=== PATIENT | male | born 1955 | race Caucasian/White ===

== ENCOUNTER 2025-01-27 10:40 | Emergency (ER) | payer OTHER ==
[2025-01-27] MEDS ORDERED: KETOROLAC 30 MG/ML INJ ONE (11:11)
[2025-01-27] MEDS ORDERED: METOCLOPRAMIDE 10 MG/2mL INJ ONE (11:11)
[2025-01-27] MEDS ORDERED: DIPHENHYDRAMINE 50 MG/ML VIAL ONE (11:12)
--- NOTE | 2025-01-27 11:37 | RAD REPORT ---
EXAMINATION: Head Brain Wo Cont CLINICAL INDICATION: Male, 69 years old.HEADACHE TECHNIQUE: Axial CT images from the skull base to the vertex without intravenous contrast. Coronal an d sagittal reformatted images were created from the data set. One or more of the following dose reduction techniques were used: Automated exposure control, adjustment of the mA and/or kV according to patient size, and/or iterative reconstruction. Unless otherwise specified, incidental findings do not require dedicated imaging follow-up. [id number]. COMPARISON: No prior exams FINDINGS: INTRACRANIAL: No acute intracranial hemorrhage. No acute large vascular territory infarct. No hydroce phalus. No mass effect or midline shift. No significant white matter disease. VASCULATURE: No visualized abnormalities in the arteries or dural venous sinuses. SCALP/SKULL: No calvarial fracture identified. No acute soft tissue abnormality. SINUSES: The visualized paranasal sinuses are mostly clear. No significant mastoid fluid. IMPRESSION: No acute intracranial abnormality.
--- NOTE | 2025-01-27 11:55 | EDPHYS ---
Physician Documentation [facility] Name: Boston Cevallos Age: 69 yrs Sex: Male : 1955 Arrival Date: 01/27/2025 Time: 10:40 Bed 13 Private MD: ED Physician Home Harrington HPI: 01/27 11:41 This 69 yrs old Male presents to ER via Ambulatory with complaints of Headache. ms3 11:41 69-year-old male with past medical history of migraines and anxiety presents to the [facility] emergency department from the [place] [facility] for headache that has been ongoing for 1 week. Patient states the pain is a pressure sensation of a tourniquet being applied around his head. Patient was seen in the [place] and was sent to the emergency department for CT scan of his head. Patient states his current discomfort is an 8/10. Patient states he has headaches daily.. Historical: - Allergies: 10:56 Iodinated Contrast Media - IV Dye; dd2 - PMHx: 10:56 Migraine; Anxiety; dd2 - PSHx: 10:56 None; dd2 - Immunization history:: Adult Immunizations up to date. - Infectious Disease History:: Denies. - Social history:: Smoking status: Patient reports the use of cigarette tobacco products, smokes one-half pack cigarettes per day. ROS: 11:41 Constitutional: Negative for fever, and chills. Cardiovascular: Negative for chest ms3 pain, and palpitations. Respiratory: Negative for shortness of breath, cough, wheezing, and pleuritic chest pain, Abdomen/GI: Negative for abdominal pain, nausea, vomiting, diarrhea, and constipation, MS/Extremity: Negative for injury and deformity, 11:41 Neuro: Positive for headache, Exam: 11:41 Constitutional: This is a well developed, well nourished patient who is awake, alert, ms3 and in no acute distress. Cardiovascular: Regular rate and rhythm with a normal S1 and S2. No gallops, murmurs, or rubs. Normal PMI, no JVD. No pulse deficits. Respiratory: Lungs have equal breath sounds bilaterally, clear to auscultation and percussion. No rales, rhonchi or wheezes noted. No increased work of breathing, no retractions or nasal flaring. Abdomen/GI: Soft, non-tender, with normal bowel sounds. No distension or tympany. No guarding or rebound. No evidence of tenderness throughout. Skin: Warm, dry with normal turgor. Normal color with no rashes, no lesions, and no evidence of cellulitis. Neuro: Awake and alert, GCS 15, oriented to person, place, time, and situation. Cranial nerves II-XII grossly intact. Motor strength 5/5 in all extremities. Sensory grossly intact. Cerebellar exam normal. Normal gait. Vital Signs: 10:54 BP 130 / 70; Pulse 69; Resp 16; Temp 97.9; Pulse Ox 100% on R/A; Weight 78.02 kg; dd2 Height 5 ft. 11 in. ; Pain 7/10; 11:56 BP 128 / 78; Pulse 74; Resp 18; Pulse Ox 100% ; mb9 10:54 Body Mass Index 23.99 (78.02 kg, 180.34 cm) dd2 10:54 Pain Scale: Adult dd2 MDM: 11:06 Medical Screening Exam initiated ms3 11:41 Differential diagnosis: intracerebral hemorrhage, migraine, tension headache. ms3 11:54 Data reviewed: vital signs, nurses notes, radiologic studies, and as a result, I will ms3 discharge patient. I considered the following discharge prescriptions or medication management in the emergency department Medications were administered in the Emergency Department. See MAR. Independent interpretation of the following test(s) in the Emergency Department CT Scan: My interpretation is CT Head without contrast images reviewed by me did not reveal ICH. Counseling: I had a detailed discussion with the patient and/or guardian regarding the historical points, exam findings, and any diagnostic results supporting the discharge/admit diagnosis, radiology results, the need for outpatient follow up, to return to the emergency department if symptoms worsen or persist or if there are any questions or concerns that arise at home. Special discussion: I discussed with the patient/guardian in detail that at this point there is no indication for admission to the hospital. It is understood, however, that if the symptoms persist or worsen the patient needs to return immediately for re-evaluation. ED course: On reevaluation patient is alert and oriented x 4, no apparent distress, nontoxic-appearing, speaking full sentences, ambulatory in the emergency department. Patient to follow-up Dr. Parra in 2 to 3 days. Patient understands and agrees with plan. All questions were answered. Return precautions were discussed include worsening symptoms, or any other concerns.. 01/27 11:09 Order name: CT Head Brain wo Cont; Complete Time: 11:41 ms3 01/27 11:24 Order name: IV Saline Lock; Complete Time: 11:24 mb9 Administered Medications: 11:16 Drug: Ketorolac IVP 10 mg 10 mg IVP once Route: IVP; Site: right upper arm; mb9 12:08 Follow up: Response: No adverse reaction mb9 11:20 Drug: metoCLOPramide IVP 10 mg IVP once; over 1 to 2 minutes Route: IVP; Site: right mb9 upper arm; 12:09 Follow up: Response: No adverse reaction mb9 11:22 Drug: diphenhydrAMINE IVP 12.5 mg IVP once Route: IVP; Site: right upper arm; mb9 12:09 Follow up: Response: No adverse reaction mb9 11:24 Drug: Decadron - Dexamethasone IVP 10 mg IVP once Route: IVP; Site: right upper arm; mb9 12:08 Follow up: Response: No adverse reaction mb9 Disposition Summary: 01/27/25 11:54 Discharge Ordered Notes: Location: Home ms3 Condition: Stable ms3 Diagnosis - Headache ms3 Followup: ms3 - With: Librado Parra MD - When: 2 - 3 days - Reason: Recheck today's complaints Discharge Instructions: - Discharge Summary Sheet ms3 - General Headache Without Cause ms3 Forms: - Medication Reconciliation Form ms3 - Antibiotic Education ms3 - Prescription Opioid Use ms3 - Patient Portal Instructions ms3 - Leadership Thank You Letter ms3 Signatures: Dispatcher [employer] Home Van DO DO ms3 Liza Kauffman RN RN mb9 ISATU SANTIAGO RN RN dd2 Corrections: (The following items were deleted from the chart) 10:57 10:56 PMHx: VITAMIN D DEFFICIANCY; dd2 dd2
--- NOTE | 2025-01-27 11:55 | ER ---
Nurse's Notes [facility] Name: Boston Cevallos Age: 69 yrs Sex: Male : 1955 Arrival Date: 01/27/2025 Time: 10:40 Bed 13 Private MD: Diagnosis: Headache Presentation: 01/27 10:54 Chief complaint: Patient states: HE HAS A HX OF MIGRAINES AND HAS A DULL HEADACHE dd2 CONSTANTLY BUT THE PAST 3 DAYS IT HAS BEEN WORSE, PRESSURE BEHIND THE EYES, INTENSE PAIN. [facility]TS [facility] AND PRESCRIPTION. Coronavirus screen: At this time, the client does not indicate any symptoms associated with coronavirus-19. Ebola Screen: No symptoms or risks identified at this time. Initial Sepsis Screen: Does the patient meet any 2 criteria? No. Patient's initial sepsis screen is negative. Does the patient have a suspected source of infection? No. Patient's initial sepsis screen is negative. Risk Assessment: Do you want to hurt yourself or someone else? Patient reports no desire to harm self or others. Onset of symptoms is unknown. 10:54 Method Of Arrival: Ambulatory dd2 10:54 Acuity: JEFFREY 3 dd2 Triage Assessment: 10:56 Headache History: The patient has had previous headaches and this one is similar to dd2 previous episodes. General: Appears in no apparent distress. uncomfortable, Behavior is calm, cooperative, appropriate for age. Pain: Complains of pain in HEAD Pain currently is 7 out of 10 on a pain scale. Pain began PT REPORTS CONSTANT Also complains of labile emotions. Neuro: Level of Consciousness is awake, alert, obeys commands, Oriented to person, place, time, situation, Appropriate for age Reports headache in entire. Historical: - Allergies: 10:56 Iodinated Contrast Media - IV Dye; dd2 - PMHx: 10:56 Migraine; Anxiety; dd2 - PSHx: 10:56 None; dd2 - Immunization history:: Adult Immunizations up to date. - Infectious Disease History:: Denies. - Social history:: Smoking status: Patient reports the use of cigarette tobacco products, smokes one-half pack cigarettes per day. Screenin:02 [facility] ED Fall Risk Assessment (Adult) History of falling in the last 3 months, mb9 including since admission No falls in past 3 months (0 pts) Confusion or Disorientation No (0 pts) Intoxicated or Sedated No (0 pts) Impaired Gait No (0 pts) Mobility Assist Device Used No (0 pt) Altered Elimination No (0 pt) Score/Fall Risk Level 0 - 2 = Low Risk Oriented to surroundings, Maintained a safe environment, Educated pt \T\ family on fall prevention, incl call for assistance when getting out of bed. Abuse screen: Denies threats or abuse. Nutritional screening: No deficits noted. Tuberculosis screening: No symptoms or risk factors identified. Assessment: 11:24 General: Appears in no apparent distress. Behavior is calm, cooperative. Pain: mb9 Complains of pain in head Pain currently is 10 out of 10 on a pain scale. Quality of pain is described as throbbing, Pain began suddenly, Is continuous. Neuro: Neves Agitation-Sedation Scale (RASS): 0 - Alert and Calm Level of Consciousness is awake, alert, obeys commands, Oriented to person, place, time, situation, Appropriate for age. Neuro: Reports headache in entire. Cardiovascular: Patient's skin is warm and dry. Respiratory: Airway is patent Respiratory effort is even, unlabored, Respiratory pattern is regular, symmetrical. GI: Reports nausea. : No signs and/or symptoms were reported regarding the genitourinary system. EENT: No signs and/or symptoms were reported regarding the EENT system. Derm: Skin is pink, warm \T\ dry. Musculoskeletal: Range of motion: intact in all extremities. 11:56 Reassessment: Patient appears in no apparent distress at this time. Patient is alert, mb9 oriented x 3, equal unlabored respirations, skin warm/dry/pink. Vital Signs: 10:54 BP 130 / 70; Pulse 69; Resp 16; Temp 97.9; Pulse Ox 100% on R/A; Weight 78.02 kg; dd2 Height 5 ft. 11 in. ; Pain 7/10; 11:56 BP 128 / 78; Pulse 74; Resp 18; Pulse Ox 100% ; mb9 10:54 Body Mass Index 23.99 (78.02 kg, 180.34 cm) dd2 10:54 Pain Scale: Adult dd2 ED Course: 10:44 Patient arrived in ED. al6 10:46 Home Harrington DO is Attending Physician. ms3 10:56 Triage completed. dd2 10:56 Arm band placed on left wrist. dd2 10:59 Liza Kauffman, RN is Primary Nurse. mb9 11:02 No provider procedures requiring assistance completed. mb9 11:24 Inserted saline lock: 18 gauge in right upper arm, using aseptic technique. Blood mb9 collected. Flushed with 10 mL NS. 11:26 Placed in gown. Bed in low position. Call light in reach. Provided Education on: press mb9 call light if needing anything. Client placed on continuous cardiac and pulse oximetry monitoring. NIBP monitoring applied. 11:31 CT Head Brain wo Cont In Process Unspecified. EDMS 11:54 Librado Parra MD is Referral Physician. ms3 11:56 IV discontinued, intact, bleeding controlled, No redness/swelling at site. Pressure mb9 dressing applied. Administered Medications: 11:16 Drug: Ketorolac IVP 10 mg 10 mg IVP once Route: IVP; Site: right upper arm; mb9 12:08 Follow up: Response: No adverse reaction mb9 11:20 Drug: metoCLOPramide IVP 10 mg IVP once; over 1 to 2 minutes Route: IVP; Site: right mb9 upper arm; 12:09 Follow up: Response: No adverse reaction mb9 11:22 Drug: diphenhydrAMINE IVP 12.5 mg IVP once Route: IVP; Site: right upper arm; mb9 12:09 Follow up: Response: No adverse reaction mb9 11:24 Drug: Decadron - Dexamethasone IVP 10 mg IVP once Route: IVP; Site: right upper arm; mb9 12:08 Follow up: Response: No adverse reaction mb9 Medication: 11:02 VIS not applicable for this client. mb9 Outcome: 11:54 Discharge ordered by . ms3 11:56 Discharged to home ambulatory, mb9 11:56 Condition: stable 11:56 Discharge instructions given to patient, Instructed on discharge instructions, follow up and referral plans. Demonstrated understanding of instructions, follow-up care, 12:09 Patient left the ED. mb9 Signatures: Dispatcher [employer] EDMS Home Harrington DO DO ms3 Liza Kauffman RN RN mb9 ISATU SANTIAGO RN RN dd2 Giovanna Parkinson Corrections: (The following items were deleted from the chart) 10:57 10:56 PMHx: VITAMIN D DEFFICIANCY; dd2 dd2
[2025-01-27 12:26] VITALS: TEMP 97.9; O2SAT 100
[2025-01-27 12:28] VITALS: BP 128/78
== END 2025-01-27 12:09 | disposition home or self-care (01) ==
LOC: ER 10:40
DX: R51.9 Headache, unspecified (principal); F41.9 Anxiety disorder, unspecified; F17.210 Nicotine dependence, cigarettes, uncomplicated
CPT/HCPCS: 70450; 96375; 96374; 99284; J2765; J1200; J1100